=== PATIENT | female | born 1990 | race Caucasian/White ===

== ENCOUNTER 2020-01-06 20:00 | Emergency (ER) | payer OTHER ==
[~2020-01-06] VITALS: Ht 160 cm; Wt 68.5 kg
[2020-01-06 20:04] VITALS: BP 118/75
--- NOTE | 2020-01-06 20:09 | NUR ---
PT AMBULATED TO BED #1 WITH FAMILY
--- NOTE | 2020-01-06 20:13 | NUR ---
29 YEAR OLD FEMALE COMPLAINS OF BODYACHES, SORE THROAT, AND HEADACHE SINCE YESTERDAY. PATIENT LUNGS CTABL, BREATHING EVEN AND UNLABORED. PATIENT AOX4, SKIN WARM AND DRY. BED IN LOWEST POSITION, LOCKED, BED RAIL UPX1. TEMPERATURE 99.4. PMH - DENIES ALLERGIES - IBUPROFEN
--- NOTE | 2020-01-06 20:20 | NUR ---
Note mooaustyn in EDM - 01/06/20 at 2126 by KENA Patient discharged with v/s stable. Written and verbal after care instructions about influenza given and explained. Patient alert, oriented and verbalized understanding of instructions. Ambulatory with steady gait. All questions addressed prior to discharge. ID band removed. Patient advised to follow up with PMD. Rx of acetaminophen, promethazine, and tamiflu given. Patient educated on indication of medication including possible reaction and side effects. Opportunity to ask questions provided and answered. Excuse from work given.
[2020-01-06] MEDS ORDERED: ACETAMINOPHEN EXTRA STRENGTH 500 MG TAB PO ONE (20:45)
[2020-01-06 21:20] VITALS: BP 118/75
--- NOTE | 2020-01-06 21:20 | NUR ---
Patient discharged with v/s stable. Written and verbal after care instructions about influenza given and explained. Patient alert, oriented and verbalized understanding of instructions. Ambulatory with steady gait. All questions addressed prior to discharge. ID band removed. Patient advised to follow up with PMD. Rx of acetaminophen, promethazine, and tamiflu given. Patient educated on indication of medication including possible reaction and side effects. Opportunity to ask questions provided and answered. Excuse from work given.
== END 2020-01-06 21:20 | disposition home or self-care (01) ==
LOC: MED 20:00
DX: J10.1 Influenza due to other identified influenza virus with other respiratory manifestations (principal); Z88.8 Allergy status to other drugs, medicaments and biological substances; Z98.890 Other specified postprocedural states
CPT/HCPCS: 81025; 87804; 99283

== ENCOUNTER 2020-07-09 19:36 | Emergency (ER) | payer OTHER ==
[~2020-07-09] VITALS: Ht 160 cm; Wt 72.6 kg
[2020-07-09 20:07] VITALS: BP 120/68
--- NOTE | 2020-07-09 20:11 | NUR ---
PT AMBULATED TO [facility]. Addendum: 07/09/20 at 4 by TATIANA Amendment undone in ED - 07/09/[address] Morley examining patient.
--- NOTE | 2020-07-09 20:32 | NUR ---
30 Y/O F PRESENTS TO ED C/O RT TOE PAIN S/O FALL X 2 DAYS. PT STATES THAT SHE ACCIDENTALLY HIT HER RIGHT BIG TOE ON THE TOE WHEN SHE TRIED TO CATCH HER FALL. DENIES HITTING HEAD OR LOC. VSS. BRUISE AND SWELLING OBSERVED ON THE RT BIG TOE. DENIES N/V/D. AIR WAY INTACT, RR EVEN AND UNLABORED. LUNG SOUNDS CLEAR. BED LOCKED AND IN LOWEST POSITION, SIDE RAIL UP X1. WILL CONTINUE TO MONITOR. MHX: DENIES ALLERGIES: IBUPROFEN
--- NOTE | 2020-07-09 22:10 | NUR ---
APPLIED ORTHO SHOES TO FOOT WITHOUT ANY ISSUES
[2020-07-09 22:12] VITALS: BP 120/68
== END 2020-07-09 22:13 | disposition home or self-care (01) ==
LOC: MED 19:36
DX: S92.401A Displaced unspecified fracture of right great toe, initial encounter for closed fracture (principal); Z88.6 Allergy status to analgesic agent; W22.8XXA Striking against or struck by other objects, initial encounter; Y93.89 Activity, other specified; Y92.89 Other specified places as the place of occurrence of the external cause; Y99.8 Other external cause status
CPT/HCPCS: 73630; 99283